=== PATIENT | female | born 1985 | race Caucasian/White ===

== ENCOUNTER 2016-07-29 20:43 | Emergency (ER) | payer SELFPAY ==
[2016-07-29 21:18] LABS: Hematocrit 34.9 % (30.3-42.9); Hemoglobin 11.8 gm/dl (10.1-14.3); Mean Corpuscular HGB Conc 34 % (30-34); Mean Corpuscular Hemoglobin 29 pg (28-32); Mean Corpuscular Volume 86 fl (79-97); Platelet Count 285 K/mm3 (140-440); Red Blood Count 4.04 M/mm3 (3.65-5.03); Red Cell Distribution Width 12.6 % (13.2-15.2); White Blood Count 8.6 K/mm3 (4.5-11.0)
[2016-07-29 21:47] LABS: Anion Gap 18 mmol/L; Blood Urea Nitrogen 12 mg/dL (7-17); Calcium 9.2 mg/dL (8.4-10.2); Carbon Dioxide 24 mmol/L (22-30); Chloride 98.3 mmol/L (98-107); Glucose 82 mg/dL (65-100); Potassium 3.8 mmol/L (3.6-5.0); Sodium 136 mmol/L (137-145)
--- NOTE | 2016-07-30 01:13 | Ultrasound Report ---
FINAL REPORT EXAM: US OB \T\lt; = 14 WEEKS FETUS HISTORY: vag bleed in COMPARISON: None available. TECHNIQUE: Several real-time grayscale and color Doppler images were obtained. Transvaginal and transabdominal exam. FINDINGS: Single live IUP. Estimated gestational age 15 weeks 4 days. Estimated delivery date January 17, 2017. BPD 3.1 centimeters 15 weeks 4 days. Head circumference 11.4 centimeters 15 weeks 4 days. Abdominal circumference 9.6 centimeters 15 weeks 5 days. Femoral length 1.9 centimeters 15 weeks 6 days. heart rate 146 beats per minute Placenta location anterior no placenta previa. The cervix is closed and measures 4.1 centimeters in length. position breech. Limited evaluation of structures due to early gestational age. IMPRESSION: Single live IUP. Estimated gestational age 15 weeks 4 days. Estimated delivery date January 17, 2017. No gross or placental abnormality at this time. Limited evaluation of structures due to early gestational age.
[2016-07-30 06:37] LABS: Bacteria,Urine 4+ /HPF (Negative)
[2016-07-30 06:38] LABS: Bilirubin,Urine NEG (Negative); Blood,Urine LG (Negative); Ketones,Urine NEG (Negative); Leukocyte Esterase,Urine TR (Negative); Nitrite,Urine NEG (Negative); Urobilinogen,Urine < 2.0 mg/dL (<2.0)
[2016-07-30 06:39] LABS: RBC,Urine > 182.0 /HPF (0.0-6.0); WBC,Urine > 182.0 /HPF (0.0-6.0)
[2016-07-30] MEDS ORDERED: MACROBID PO ONE (07:31)
--- NOTE | 2016-07-30 07:31 | Emergency Department Report ---
HPI - General Chief Complaint: Vaginal Bleeding Time Seen by Provider: 07/30/16 07:07 - HPI HPI: This is a 31-year-old Afro-[place]azi female who presents to the emergency department with complaint of a one-week history of vaginal bleeding. The patient is about 14 weeks . It started off as spotting but yesterday she started having heavier bleeding that required her to wear a pad and she has changed her pad about 2 or 3 times since getting into the emergency department. She is with one previous and 6 children. 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 She denies any fever, vaginal discharge, dysuria, back pain, vomiting. She has not taken anything for her symptoms prior to presentation. No recent travel or sick contacts at home. ED Past Medical Hx - Past Medical History Hx Asthma: Yes - Surgical History Past Surgical History?: No - Social History Smoking Status: Never Smoker Substance Use Type: None - Medications Home Medications: Home Medications Medication Instructions Recorded Confirmed Last Taken Type Nitrofurantoin [place]/M-Cryst 100 mg PO BID #14 capsule 07/30/16 Unknown Rx [Macrobid CAP] ED Review of Systems ROS: Stated complaint: poss vag bleeding Other details as noted in HPI Comment: All other systems reviewed and negative Constitutional: denies: chills, fever Eyes: denies: eye pain, eye discharge, vision change ENT: denies: ear pain, throat pain Respiratory: denies: cough, shortness of breath, wheezing Cardiovascular: denies: chest pain, palpitations Gastrointestinal: denies: abdominal pain, nausea, diarrhea Genitourinary: other (vaginal bleeding). denies: dysuria Musculoskeletal: denies: back pain, joint swelling, arthralgia Skin: denies: rash, lesions Neurological: denies: headache, weakness, paresthesias Physical Exam - Physical Exam Vital Signs: Vital Signs 07/29/16 07/30/16 21:01 06:23 Temperature 98.6 F 98.1 F Pulse Rate 94 H 85 Respiratory 18 20 Rate Blood Pressure 112/66 121/62 O2 Sat by Pulse 100 100 Oximetry Physical Exam: GENERAL: The patient is well-developed well-nourished. HEENT: Normocephalic. Atraumatic. Extraocular motions are intact. Patient has moist mucous membranes. NECK: Supple. Trachea is midline. CHEST/LUNGS: Clear to auscultation. There is no respiratory distress noted. HEART/CARDIOVASCULAR: Regular. There is no tachycardia. There is no gallop rub or murmur. ABDOMEN: Abdomen is soft, nontender. Patient has normal bowel sounds. There is no abdominal distention. Gravid uterus palpable in the lower abdomen. SKIN: Skin is warm and dry. NEURO: The patient is awake, alert, and oriented. The patient is cooperative. The patient has no focal neurologic deficits. The patient has normal speech. MUSCULOSKELETAL: There is no tenderness or deformity. There is no limitation range of motion. There is no evidence of acute injury. : Cervix appears closed. There is no gross blood seen in the vagina currently. ED Course Vital Signs 07/29/16 07/30/16 21:01 06:23 Temperature 98.6 F 98.1 F Pulse Rate 94 H 85 Respiratory 18 20 Rate Blood Pressure 112/66 121/62 O2 Sat by Pulse 100 100 Oximetry ED Medical Decision Making - Lab Data Result diagrams: 07/29/16 21:09 07/29/16 21:09 - Radiology Data Radiology results: report reviewed EXAM: US OB TRANSVAGINAL HISTORY: vag bleed in COMPARISON: None available. TECHNIQUE: Several real-time grayscale and color Doppler images were obtained. Transvaginal and transabdominal exam. FINDINGS: Single live IUP. Estimated gestational age 15 weeks 4 days. Estimated delivery date January 17, 2017. BPD 3.1 centimeters 15 weeks 4 days. Head circumference 11.4 centimeters 15 weeks 4 days. Abdominal circumference 9.6 centimeters 15 weeks 5 days. Femoral length 1.9 centimeters 15 weeks 6 days. heart rate 146 beats per minute Placenta location anterior no placenta previa. The cervix is closed and measures 4.1 centimeters in length. position breech. Limited evaluation of structures due to early gestational age. IMPRESSION: Single live IUP. Estimated gestational age 15 weeks 4 days. Estimated delivery date January 17, 2017. No gross or placental abnormality at this time. Limited evaluation of structures due to early gestational age. Transcribed By: LMMichael Dictated By: IRA SANTA MD Electronically Authenticated By: IRA SANTA MD Signed Date/Time: 07/30/16 0109 - Medical Decision Making 31-year-old female presents with a one-week history of vaginal bleeding that started off as spotting but got to be heavier yesterday. She saw her CATERPILLAR DRIVER last Friday. Today the patient presents with heavier bleeding. Ultrasound shows a live intrauterine at 15 weeks and 4 days. She also appears to have a urinary tract infection. She was given a dose of Macrobid and will go home with a prescription for it. I discussed with her the diagnosis of threatened miscarriage. She will use pelvic rest and low amounts of exertion and will follow-up with CATERPILLAR DRIVER in the next few days. She will return to the ER with any worsening of her symptoms or any acute distress. - Differential Diagnosis , threatened miscarriage, spontaneous miscarriage, fibroids, UTI Critical Care Time: No Critical care attestation.: If time is entered above; I have spent that time in minutes in the direct care of this critically ill patient, excluding procedure time. ED Disposition Clinical Impression: Threatened miscarriage Qualifiers: Weeks of gestation: 15 weeks Qualified Code(s): Z3A.15 - 15 weeks gestation of UTI (urinary tract infection) Qualifiers: Urinary tract infection type: acute cystitis Hematuria presence: with hematuria Qualified Code(s): N30.01 - Acute cystitis with hematuria Disposition: DISCHARGED TO HOME OR SELFCARE Is pt being admited?: No Condition: Stable Instructions: (ED), Threatened Miscarriage (ED), Urinary Tract Infection in Women (ED) Additional Instructions: Please follow-up with your CATERPILLAR DRIVER in the next few days. Return to the emergency department with any worsening of her bleeding, sharp abdominal or pelvic pains, any worsening of your symptoms or any acute distress. Prescriptions: Nitrofurantoin Vance/M-Cryst [Macrobid CAP] 100 mg PO BID #14 capsule Referrals: PRIMARY CAREMD [Primary Care Provider] - [facility] Time of Disposition: 08:11
[2016-07-30 07:36] VITALS: BP 95/47
== END 2016-07-30 08:31 | disposition home or self-care (01) ==
LOC: ED 20:43
DX: O20.0 Threatened abortion (principal); O23.31 Infections of other parts of urinary tract in pregnancy, first trimester; N30.01 Acute cystitis with hematuria; Z3A.14 14 weeks gestation of pregnancy; J45.909 Unspecified asthma, uncomplicated
CPT/HCPCS: 36415; 76805; 76817; 80048; 81001; 84702; 85027; 86900; 86901

== ENCOUNTER 2020-08-13 13:40 | Emergency (ER) | payer MEDICAID | END 2020-08-13 15:50 | disposition left against medical advice (07) | LOC: ED 13:40 | DX: Z00.8 Encounter for other general examination (principal); Z53.21 Procedure and treatment not carried out due to patient leaving prior to being seen by health care provider ==

== ENCOUNTER 2020-12-26 23:35 | Observation (INO) | payer MEDICAID ==
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
[2020-12-27] MEDS ORDERED: LACTATED RINGERS 1,000 ML IV ONE (03:45)
[2020-12-27 04:12] LABS: Bilirubin,Urine NEG (Negative); Blood,Urine NEG (Negative); Color,Urine Straw (Yellow); Mucus,Urine FEW /HPF; Protein,Urine <15 mg/dL mg/dL (Negative); RBC,Urine < 1.0 /HPF (0.0-6.0); Urobilinogen,Urine < 2.0 mg/dL (<2.0)
[2020-12-27] MEDS ORDERED: ACETAMINOPHEN 325 MG TAB PO PRN (04:17)
[2020-12-27 04:28] LABS: Amphetamine Screen,Urine PRESUMPTIVE NEGATIVE; Benzodiazepines Screen,Urine PRESUMPTIVE NEGATIVE; Cannabinoid Screen,Urine PRESUMPTIVE NEGATIVE; Cocaine Screen,Urine PRESUMPTIVE NEGATIVE; Methadone Screen,Urine PRESUMPTIVE NEGATIVE; Opiate Screen,Urine PRESUMPTIVE NEGATIVE
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
--- NOTE | 2020-12-27 05:10 | Ultrasound Report ---
OBSTETRIC ULTRASOUND INDICATION: STATUS COMPARISON: No prior relevant imaging studies are available for comparison. TECHNIQUE: Transabdominal imaging was performed. FINDINGS: Single viable intrauterine is identified. lie: Breech. Heart rate: 149 bpm. measurements are as follows: Biparietal diameter 6.7 cm, 27 weeks 0 days Head circumference 26.3 cm, 28 weeks 4 days Abdominal circumference 23.8 cm, 28 weeks 1 day Femur length 5.0 cm, 27 weeks 0 days Fetus is in the 32nd percentile for weight. Amniotic fluid index is 12.4 cm, within normal limits. No placental abnormalities are seen. CONCLUSION: Single viable intrauterine currently in breech position is in the 32nd percentile for weigh t. Amniotic fluid index is within normal limits. Signer Name: Marshall Hull MD Signed: 12/27/2020 5:06 AM Workstation Name: [id number]
[2020-12-27] MEDS ORDERED: MORPHINE 2 MG/1 ML INJ IV PRN (05:16)
[2020-12-27] MEDS ORDERED: oxyCODONE /ACETAMINOPHEN 5-325MG TAB PO PRN (05:17)
--- NOTE | 2020-12-27 09:51 | Event Note ---
Date: 12/27/20 Spoke with case management. Understands dispo is dependent on housing placement for patient.
[2020-12-27] MEDS ORDERED: PRENATAL VIT27-FE FUMARATE-FOLIC ACID VIT TAB PO SCH (10:00)
[2020-12-27 12:49] VITALS: BP 107/52
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
== END 2020-12-27 14:14 | disposition home or self-care (01) ==
LOC: ED 23:35 → APU 12-27 02:30 → TRG 12-27 04:18 → APU 12-27 04:18 → LD 12-27 05:06
PROVIDERS: ADMIT Obstetrics & Gynecology; ATTEND Obstetrics & Gynecology
DX: O9A.213 Injury, poisoning and certain other consequences of external causes complicating pregnancy, third trimester (principal); Z20.822 Contact with and (suspected) exposure to COVID-19; S09.22XA Traumatic rupture of left ear drum, initial encounter; S00.83XA Contusion of other part of head, initial encounter; O99.513 Diseases of the respiratory system complicating pregnancy, third trimester; J45.909 Unspecified asthma, uncomplicated; Z3A.28 28 weeks gestation of pregnancy; Z79.899 Other long term (current) drug therapy; Y04.8XXA Assault by other bodily force, initial encounter; Y93.89 Activity, other specified; Y92.89 Other specified places as the place of occurrence of the external cause; Y99.8 Other external cause status
CPT/HCPCS: 59025; 70486; 76816; 80307; 81001; 99284; G0378; U0003